=== PATIENT | female | born 1970 | race Caucasian/White ===

== ENCOUNTER 2021-05-04 16:24 | Emergency (ER) | payer BC, SELFPAY ==
[2021-05-04 16:26] VITALS: BP 116/80; PULSE 64; RESP 20; TEMP 36.9; O2SAT 98; BMI 36.1
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
[2021-05-04 17:26] LABS: HCG Qualitative, Serum Negative (Negative)
[2021-05-04 17:30] VITALS: BP 105/72; PULSE 87; RESP 15; O2SAT 99
--- NOTE | 2021-05-04 17:38 | PC.NURSE ---
pt over to radiology at this time.
--- NOTE | 2021-05-04 18:03 | PC.NURSE ---
pt back from radiology and hooked back up to vital signs.
[2021-05-04 18:46] VITALS: BP 110/60; PULSE 95; RESP 16; TEMP 36.9; O2SAT 97
== END 2021-05-04 18:52 | disposition home or self-care (01) ==
PROVIDERS: Emergency Provider Emergency Medicine; PCP Pediatrics
DX: S80.02XA Contusion of left knee, initial encounter (principal); S60.511A Abrasion of right hand, initial encounter; S80.01XA Contusion of right knee, initial encounter; S70.02XA Contusion of left hip, initial encounter; S70.01XA Contusion of right hip, initial encounter; V29.9XXA Motorcycle rider (driver) (passenger) injured in unspecified traffic accident, initial encounter
CPT/HCPCS: 71045; 72170; 73110; 73130; 73552; 73590; 73610; 73630; 84703; 99282; 99283

== ENCOUNTER 2022-04-24 22:13 | Emergency (ER) | payer BC, SELFPAY ==
--- NOTE | 2022-04-24 22:29 | CT_ITS ---
PROCEDURE INFORMATION: Exam: CT Head Without Contrast Exam date and time: 04/24/2022 10:44 PM Age: 51 years old Clinical indication: Dizziness TECHNIQUE: Imaging protocol: Computed tomography of the head without contrast. Radiation optimization: All CT scans at this facility use at least one of these dose optimization techniques: automated exposure control; mA and/or kV adjustment per patient size (includes targeted exams where dose is matched to clinical indication); or iterative reconstruction. Other protocol: This patient has received 0 known CTs and 0 known cardiac nuclear medicine studies in the 12 months prior to the current study. COMPARISON: No relevant prior studies available. FINDINGS: Brain: Normal. No hemorrhage. Unremarkable white matter. No mass effect. Cerebral ventricles: No ventriculomegaly. Paranasal sinuses: Scattered paranasal sinus mucosal thickening, without air-fluid level present. Mastoid air cells: Visualized mastoid air cells are well aerated. Bones/joints: Unremarkable. No acute fracture. Soft tissues: Unremarkable. IMPRESSION: No acute intracranial abnormality.
[2022-04-24 22:31] VITALS: BP 113/85; PULSE 81; RESP 18; TEMP 36.4; O2SAT 98; BMI 34.9
[2022-04-24 22:32] LABS: Microscopic, Urine URINE MICROSCOPIC (MICROSCOPIC)
--- NOTE | 2022-04-24 22:33 | [facility].EDGENADL ---
Discharge Plan Disposition Patient Disposition: Home, Self-Care Prescriptions Prescriptions: New meclizine 25 mg tablet 25 mg PO TID PRN (Reason: dizziness) Qty: 30 0RF ondansetron [ondansetron] 4 mg tablet,disintegrating 4 mg PO TIDP PRN (Reason: Nausea) Qty: 10 0RF No Action sulfacetamide sodium 5 ML drops 1 drp EYE-BOTH Q3H 7 Days Qty: 1 0RF Referrals Follow up/Referrals: Clark Byrne [Referring] - See instructions Clinical Impressions Clinical Impression: Vertigo Instructions Patient Instructions: DI for Vertigo Discharge ED Provider: Ernesto Ch General Adult HPI General Chief complaint: Dizziness Stated complaint: vomiting weakness dizzy Time Seen by Provider: 04/24/22 22:25 History of Present Illness HPI narrative: Patient is a 51-year-old female with no pertinent past medical history who presents with concern for dizziness. She says that this is happened intermittently to her over the last few months but today she was at the checkout counter and she got very hot and sweaty and felt the room spinning. She says that she is also been very nauseous and vomited quite a bit during this time as well. She says that she intermittently has diarrhea as well. Denies any fever or chills. She says that the room is continuing to spin now and worse with any movement. Related Data Previous Rx's Medication Instructions Recorded sulfacetamide sodium 10 % eye drops 1 drp EYE-BOTH Q3H 7 days ##1 11/26/18 meclizine 25 mg tablet 25 mg PO TID PRN dizziness #30 tabs 04/25/22 ondansetron 4 mg disintegrating 4 mg PO TIDP PRN Nausea #10 tabs 04/25/22 tablet Allergies Allergy/AdvReac Type Severity Reaction Status Date / Time No Known Allergies Allergy Verified 11/26/18 14:01 [facility] Disclaimer: The information contained in this section may have been updated after the patient was seen, as this information can be updated by other users. Social History Smoking Status: Current every day smoker tobacco type: cigarettes packs per day: 1 alcohol intake: never current occupational status: unemployed Travel in the last 8 weeks: None ROS Obtained: Yes All systems reviewed & no additional complaints except as documented Physical Exam General General appearance: alert and in no apparent distress Head Head exam: atraumatic, normocephalic and normal inspection Eye Eye exam: Present normal appearance, PERRL and EOMI ENT ENT exam: Present normal exam, normal oropharynx, mucous membranes moist and normal external ear exam Neck Neck exam: Present normal inspection, full ROM and trachea midline; Absent meningismus or lymphadenopathy Chest Chest inspection: Present normal inspection and symmetric chest wall rise; Absent tenderness Respiratory Respiratory exam: Present normal lung sounds bilaterally; Absent respiratory distress Cardiovascular Cardiovascular exam: Present regular rate and normal rhythm Abdominal Exam Abdominal exam: Present soft; Absent distention, tenderness or guarding Extremities Exam Extremities exam: Present normal inspection, full ROM and normal capillary refill; Absent calf tenderness Back Exam Back exam: Present normal inspection; Absent tenderness Neurological Exam Neurological exam: Present alert and oriented X3 Psychiatric Psychiatric exam: Present normal affect and normal mood Skin Skin exam: Present warm, dry, intact and normal color Lymphatic Lymphatic Findings: no adenopathy Medical Decision Making Patrick Inquiry Pt receiving controlled substance: Yes Patrick was queried for this patient: No Risks and benefits of using a controlled substance: were discussed with pt by me Vital Signs: 04/24/22 22:31 04/25/22 00:34 Temperature 97.6 F 98 F Temperature Source Oral Oral Pulse Rate 80 Pulse Rate [Apical] 81 Respiratory Rate 18 18 Blood Pressure 110/80 Blood Pressure [Right Arm] 113/85 Blood Pressure Mean [Right Arm] 94 Blood Pressure S
[2022-04-24 22:35] LABS: Appearance,Urine CLEAR (Clear); Bilirubin,Urine Negative (Negative); Blood, Urine 2+ (Negative); Color,Urine YELLOW (Yellow); Glucose,Urine (UA) Negative (Negative); Ketones,Urine Negative (Negative); Leukocyte Esterase,Urine Negative (Negative); Nitrate,Urine Negative (Negative); PH,Urine 5.5 (5.0-8.5); Protein,Urine TRACE (Negative); Specific Gravity, Urine >= 1.030 (1.005-1.030); Urobilinogen,Urine 0.2 EU/dl (0.2)
[2022-04-24 22:42] LABS: Coronavirus 19, PCR Not Detected (NotDetected); Influenza A, PCR Not Detected (NotDetected); Influenza B, PCR Not Detected (NotDetected)
[2022-04-24 22:50] LABS: Basophils # 0.2 K/mm3 (0-0.2); Basophils % 1.6 % (0.1-2.0); Eosinophils # 0.1 K/mm3 (0.0-0.4); Eosinophils % 1.3 % (0.1-12.0); Hematocrit 47.7 % (37.0-47.0); Hemoglobin 16.1 g/dL (12.2-16.2); Lymphocytes # 3.6 K/mm3 (0.7-4.5); Lymphocytes % 33.6 % (10-50); Mean Corpuscular HGB Conc 33.8 g/dL (31.8-35.4); Mean Corpuscular Hemoglobin 30.8 pg (27.0-31.2); Mean Corpuscular Volume 91.1 fl (81-99); Mean Platelet Volume 8.3 fl (7.4-10.4); Monocytes # 0.4 K/mm3 (0.1-1.0); Monocytes % 3.4 % (1.7-9.3); Neutrophils # 6.5 K/mm3 (1.8-7.8); Neutrophils % 60.1 % (37.0-80.0); Platelet Count 327 K/mm3 (142-424); Red Blood Count 5.23 M/mm3 (4.20-5.40); Red Cell Distribution Width 12.7 % (11.5-17.5); White Blood Count 10.8 K/mm3 (4.8-10.8)
[2022-04-24 22:52] LABS: Bacteria,Urine 3+ /lpf; WBC,Urine Occasional #/hpf (0-3)
[2022-04-24 22:53] LABS: Alanine Aminotransferase 34 U/L (12-78); Albumin Level 5.2 g/dl (3.5-5.0); Albumin/Globulin Ratio 1.5 (1.1-1.8); Alkaline Phosphatase 98 U/L (38-126); Anion Gap 9.6 mEq/L (5-15); Aspartate Amino Transferase 33 U/L (14-36); Bilirubin,Total 0.5 mg/dl (0.2-1.3); Blood Urea Nitrogen 12 mg/dl (7-17); Calcium 9.6 mg/dl (8.4-10.2); Carbon Dioxide 25 mmol/L (22.0-30.0); Chloride 105 mmol/L (98-107); Creatinine Clearance Estimated 143 mL/min (50-200); Estimated Glomerular Filt Rate 88 ml/min (>60); GFR (African American) 107 ML/MIN (>60); Globulin 3.4 g/dL (1.3-3.2); Glucose 140 mg/dl (74-100); Lipase 122 U/L (23-300); Potassium 3.6 mmoL/L (3.5-5.1); Sodium 136 mmol/L (136-145); Total Protein,Serum 8.6 g/dl (6.3-8.2)
[2022-04-24 22:58] LABS: C-Reactive Protein 1.2 mg/L (0-4)
[2022-04-25 00:34] VITALS: BP 110/80; PULSE 80; RESP 18; TEMP 36.6; O2SAT 99
== END 2022-04-25 00:51 | disposition home or self-care (01) ==
PROVIDERS: Emergency Provider Student in an Organized Health Care Education/Training Program; PCP Family Medicine
DX: R42 Dizziness and giddiness (principal); F17.210 Nicotine dependence, cigarettes, uncomplicated; Z20.822 Contact with and (suspected) exposure to COVID-19
CPT/HCPCS: 70450; 80053; 81001; 83690; 85025; 86140; 87086; 96361; 96374; 96375; 99285; C9803; J2405; U0003; U0005